=== PATIENT | male | born 2000 | race Asian ===

== ENCOUNTER 2020-06-06 15:19 | Outpatient (CLI) | payer BC, SELFPAY ==
--- NOTE | 2020-06-06 15:15 | DI.RAD_ITS ---
EXAM: XR WRIST RT COMPL NAVICULAR CLINICAL HISTORY: right wrist pain- had previous injury and fracture, M25.539. TECHNIQUE: 2D digital imaging was performed. COMPARISON: No exams were available for comparison FINDINGS: BONES: No acute fracture is present. No bony destructive lesion is seen. JOINTS: There is widening of the scapholunate distance measuring 3.1 mm. This may reflect scapholuna te ligament injury. The joint spaces are otherwise well maintained. SOFT TISSUE: Normal. IMPRESSION: Widening of the scapholunate joint suspicious for ligamentous injury. MRI may be considered for furt her evaluation. DATA REPOSITORY: RADIATION DOSE DELIVERED:
== END 2020-06-06 15:39 ==
PROVIDERS: PCP Pediatrics; Visit Provider Pediatrics
DX: M25.831 Other specified joint disorders, right wrist (principal); M25.531 Pain in right wrist
CPT/HCPCS: 73110

== ENCOUNTER 2025-04-05 13:59 | Outpatient (REF) | payer BC, SELFPAY ==
[2025-04-05 15:32] LABS: Abs Immature Grans 0.01 10^3/uL (0.0-0.06); Absolute Basophil Count 0.04 10^3/uL (0.0-0.2); Absolute Eosinophil Count 0.33 10^3/uL (0.0-0.7); Absolute Lymphocyte Count 2.43 10^3/uL (1.2-3.4); Absolute Monocyte Count 0.49 10^3/uL (0.1-0.8); Basophils % 0.5 %; Eosinophils % 4.4 %; HCT 44.1 % (40.0-50.0); HGB 14.7 g/dL (13.5-17.5); Immature Grans % 0.1 %; Lymphocytes % 32.4 %; MCH 28.8 pg (27.0-33.0); MCHC 33.3 % (32.0-36.0); MCV 86 fL (80-95); MPV 11.1 fL (8.0-11.0); Monocytes % 6.5 %; Neutrophils % 56.1 %; Platelet Count 231 10^3/uL (130-400); RBC 5.11 10^6/uL (4.36-5.78); RDW 12.7 % (11.8-14.1); RDW-SD 39.9 fL
[2025-04-05 16:27] LABS: ALT 47 U/L (16-63); AST 24 U/L (15-37); Albumin 4.3 g/dL (3.4-5.0); Alkaline Phosphatase 125 U/L (46-116); Anion Gap 8.3 mmol/L (3-11); BUN 13 mg/dL (7-18); Bilirubin, Total 0.6 mg/dL (0.2-1.0); CO2 26.7 mmol/L (21.0-32.0); Calcium 9.8 mg/dL (8.5-10.1); Chloride 105 mmol/L (98-107); Estimated GFR 107.78 (mL/min/1.73m2); Ferritin 73 ng/mL (26-388); Glucose 100 mg/dL (74-106); Sodium 140 mmol/L (136-145); TSH (W/Ref FT4) 1.51 uIU/mL (0.36-3.74); Total Protein 7.6 g/dL (6.4-8.2)
[2025-04-06 18:44] LABS: Iron 85 ug/dL (65-175); Total Iron Binding Capacity 319 ug/dL (250-450); Transferrin Sat 27 % (20-55)
[2025-04-06 19:08] LABS: Vitamin B12 812 pg/mL (193-986); Vitamin D 25 Total 20 ng/mL (30-100)
== END 2025-04-05 14:00 | disposition home or self-care (01) ==
LOC: NCHCN 13:59
PROVIDERS: Visit Provider Nurse Practitioner Family
DX: R53.83 Other fatigue (principal)
CPT/HCPCS: 80053; 82306; 82607; 82728; 83540; 83550; 84443; 85025